=== PATIENT | female | born 1970 | race Asian ===

== ENCOUNTER 2018-06-04 07:55 | Day surgery (SDC) | payer OTHER ==
[~2018-06-04] VITALS: Ht 165.1 cm; Wt 54.4 kg
[2018-06-04 08:15] LABS: HCG,QUAL RESULT NEGATIVE (NEGATIVE)
[2018-06-04] MEDS ORDERED: CLINDAMYCIN 600 mg/50mL D5W 50 ML IV ONE (08:45)
[2018-06-04] MEDS ORDERED: CEFAZOLIN 1 GM IVPB PREMIX 50 ML IV ONE (08:45)
[2018-06-04] MEDS ORDERED: DEXAMETHASONE SOD PHOSPHATE 4 MG/ML VIAL IVP ONE (10:01)
[2018-06-04] MEDS ORDERED: fentaNYL CITRATE/PF 100 MCG/2 ML AMP IVP ONE (10:01)
[2018-06-04] MEDS ORDERED: MIDAZOLAM HCL 5 MG/5 ML VIAL IVP ONE (10:01)
[2018-06-04] MEDS ORDERED: SEVOFLURANE 15 MIN GAS INH ONE (10:01)
[2018-06-04] MEDS ORDERED: PROPOFOL 200MG/ 20ML VIAL (DIPRIVAN) IV ONE (10:01)
[2018-06-04] MEDS ORDERED: LR 1,000 ML IV.SOLN IV ONE (10:01)
[2018-06-04] MEDS ORDERED: POLYMYXIN 500,000/BACIT.10,000 UNITS in NS IRR 1 L IR ONE (10:37)
[2018-06-04] MEDS ORDERED: fentaNYL CITRATE/PF 100 MCG/2 ML AMP IVP PRN ×2 (11:30)
[2018-06-04] MEDS ORDERED: ONDANSETRON HCL 4 MG/2 ML VIAL IVP PRN (11:30)
[2018-06-04 13:19] VITALS: BP_SYST 101
== END 2018-06-04 14:30 | disposition home or self-care (01) ==
LOC: SDS 07:55 → SMU 07:55 → SDS 14:30
PROVIDERS: ATTEND Otolaryngology
DX: L02.11 Cutaneous abscess of neck (principal); F17.210 Nicotine dependence, cigarettes, uncomplicated; Z79.899 Other long term (current) drug therapy; K11.5 Sialolithiasis
CPT/HCPCS: 10060; 84703; 87070; 87075; J0690; J1100; J2250; J2704; J3010; J3490; J7120

== ENCOUNTER 2018-10-29 07:28 | Day surgery (SDC) | payer OTHER ==
[~2018-10-29] VITALS: Ht 165.1 cm; Wt 59.0 kg
[2018-10-29 07:59] LABS: HCG,QUAL RESULT NEGATIVE (NEGATIVE)
[2018-10-29] MEDS ORDERED: ONDANSETRON HCL 4 MG/2 ML VIAL IVP PRN (08:15)
[2018-10-29] MEDS ORDERED: fentaNYL CITRATE/PF 100 MCG/2 ML AMP IVP PRN ×2 (08:15)
[2018-10-29] MEDS ORDERED: BACITRACIN ZINC 15 GM TOPICAL OINTMENT TP ONE (09:31)
[2018-10-29] MEDS ORDERED: LR 1,000 ML IV.SOLN IV ONE (09:31)
[2018-10-29] MEDS ORDERED: PROPOFOL 200MG/ 20ML VIAL (DIPRIVAN) IV ONE (09:31)
[2018-10-29] MEDS ORDERED: CEFAZOLIN 2 GM IVPB PREMIX 50 ML IV ONE (09:31)
[2018-10-29] MEDS ORDERED: NS IRRIG SOLN 1000 ML IR ONE (09:31)
[2018-10-29] MEDS ORDERED: DEXAMETHASONE SOD PHOSPHATE 4 MG/ML VIAL IVP ONE (09:31)
[2018-10-29] MEDS ORDERED: fentaNYL CITRATE/PF 100 MCG/2 ML AMP IVP ONE (09:31)
[2018-10-29] MEDS ORDERED: LIDOCAINE/EPI 1% 1:100000 20 ML VIAL INJ ONE (09:31)
[2018-10-29] MEDS ORDERED: SEVOFLURANE 15 MIN GAS INH ONE (09:31)
[2018-10-29] MEDS ORDERED: MIDAZOLAM HCL 5 MG/5 ML VIAL IVP ONE (09:31)
[2018-10-29] MEDS ORDERED: fentaNYL CITRATE/PF 100 MCG/2 ML AMP ONE ×2 (13:22→16:14)
[2018-10-29 14:24] VITALS: BP_SYST 109
== END 2018-10-29 17:00 | disposition home or self-care (01) ==
LOC: SDS 07:28 → SMU 07:28 → SDS 17:00
PROVIDERS: ATTEND Otolaryngology
DX: K11.23 Chronic sialoadenitis (principal); F17.200 Nicotine dependence, unspecified, uncomplicated; Z79.899 Other long term (current) drug therapy; Z98.890 Other specified postprocedural states; F17.218 Nicotine dependence, cigarettes, with other nicotine-induced disorders
CPT/HCPCS: 38720; 42440; 84703; 88305; C1782; J3010; 88307; J0690; J1100; J2250; J2704; J7120